=== PATIENT | female | born 1970 | race Caucasian/White ===

== ENCOUNTER 2017-09-29 08:05 | Emergency (ER) | payer BC, MEDICAID ==
[2017-09-29 08:14] VITALS: BP 145/82
--- NOTE | 2017-09-29 08:34 | ER Document Report ---
ED ENT - General Chief Complaint: Ear Pain Stated Complaint: RIGHT EAR PAIN Time Seen by Provider: 09/29/17 08:22 Mode of Arrival: Ambulatory Information source: Patient Notes: Patient is a 47-year-old female who presents to the ER today for 4 days of right ear pain and yellow discharge. Patient denies any hearing loss, runny nose, sore throat, cough, fever, chills or other symptoms. TRAVEL OUTSIDE OF THE [place] IN LAST 30 DAYS: No - Related Data Allergies/Adverse Reactions: acetaminophen [From Darvocet-N] Allergy (Verified 09/29/17 08:07) morphine Allergy (Verified 09/29/17 08:07) propoxyphene [From Darvocet-N] Allergy (Verified 09/29/17 08:07) Past Medical History - General Information source: Patient - Social History Smoking Status: Current Every Day Smoker Chew tobacco use (# tins/day): No Frequency of alcohol use: None Drug Abuse: None Family History: Reviewed & Not Pertinent Patient has suicidal ideation: No Patient has homicidal ideation: No - Past Medical History Cardiac Medical History: Reports: Hx Hypertension Renal/ Medical History: Denies: Hx Peritoneal Dialysis Psychiatric Medical History: Reports: Hx Bipolar Disorder, Hx Depression Review of Systems - Review of Systems Constitutional: No symptoms reported EENT: See HPI Cardiovascular: No symptoms reported Respiratory: No symptoms reported Gastrointestinal: No symptoms reported Genitourinary: No symptoms reported Female Genitourinary: No symptoms reported Musculoskeletal: No symptoms reported Skin: No symptoms reported Hematologic/Lymphatic: No symptoms reported Neurological/Psychological: No symptoms reported Physical Exam - Vital signs Vitals: Temp Pulse Resp BP Pulse Ox 98.4 F 89 16 145/82 H 98 09/29/17 08:14 09/29/17 08:14 09/29/17 08:14 09/29/17 08:14 09/29/17 08:14 - Notes Notes: PHYSICAL EXAMINATION: GENERAL: Well-appearing and in no acute distress. HEAD: Atraumatic, normocephalic. EYES: Pupils equal round and reactive to light, extraocular movements intact, sclera anicteric, conjunctiva are normal. ENT: Left ear canal without erythema or foreign body, right ear canal erythematous with yellow drainage, TMs pearly osorio with good bony landmarks, no perforation, nares patent, oropharynx clear without exudates. Moist mucous membranes. NECK: Normal range of motion, supple without lymphadenopathy LUNGS: CTAB and equal. No wheezes rales or rhonchi. HEART: Regular rate and rhythm without murmurs EXTREMITIES: Normal range of motion, no pitting edema. No cyanosis. NEUROLOGICAL: Cranial nerves grossly intact. Normal sensory/motor exams. PSYCH: Normal mood, normal affect. SKIN: Warm, Dry, normal turgor, no rashes or lesions noted Course - Vital Signs Vital signs: Temp Pulse Resp BP Pulse Ox 98.4 F 89 16 145/82 H 98 09/29/17 08:14 09/29/17 08:14 09/29/17 08:14 09/29/17 08:14 09/29/17 08:14 Discharge - Discharge Clinical Impression: Otitis externa of right ear Qualifiers: Otitis externa type: unspecified type Chronicity: acute Qualified Code(s): H60.501 - Unspecified acute noninfective otitis externa, right ear Condition: Stable Disposition: HOME, SELF-CARE Instructions: Use of Ear Drops ([facility]), Otitis Externa ([facility]) Additional Instructions: Return immediately for any new or worsening symptoms. Follow up with primary care provider, call tomorrow to make followup appointment. Prescriptions: Ciprofloxacin/Hydrocortisone [Cipro Hc Otic Suspension] 10 ml OD BID #1 drops.susp
== END 2017-09-29 08:41 | disposition home or self-care (01) ==
LOC: ER 08:05
DX: H60.501 Unspecified acute noninfective otitis externa, right ear (principal); H92.01 Otalgia, right ear; I10 Essential (primary) hypertension; F17.200 Nicotine dependence, unspecified, uncomplicated; Z88.6 Allergy status to analgesic agent; Z88.5 Allergy status to narcotic agent
CPT/HCPCS: 99282

== ENCOUNTER 2019-03-05 19:11 | Observation (INO) | payer MEDICAID ==
[2019-03-05 20:42] LABS: ABSOLUTE BASOPHILS # (AUTO) 0.1 10^3/uL (0.0-0.2); ABSOLUTE LYMPHOCYTES (AUTO) 1.2 10^3/uL (0.5-4.7); ABSOLUTE MONOCYTES (AUTO) 0.7 10^3/uL (0.1-1.4); ABSOLUTE NEUT (AUTO) 4.9 10^3/uL (1.7-8.2); EOSINOPHILS % (AUTO) 0.1 % (0-6); HEMATOCRIT 41.3 % (36.0-47.0); HEMOGLOBIN 14.5 g/dL (12.0-15.5); LYMPHOCYTES % (AUTO) 17.3 % (13-45); MEAN CORPUSCULAR HEMOGLOBIN 30.6 pg (27.0-33.4); MEAN CORPUSCULAR VOLUME 88 fl (80-97); MONOCYTES % (AUTO) 10.8 % (3-13); PLATELET COUNT 200 10^3/uL (150-450); RED BLOOD COUNT 4.72 10^6/uL (3.72-5.28); RED CELL DISTRIBUTION WIDTH 13.8 % (11.5-14.0); SEGMENTED NEUTROPHILS % (AUTO) 70.8 % (42-78); TOTAL CELLS COUNTED % (AUTO) 100 %; WHITE BLOOD COUNT 6.9 10^3/uL (4.0-10.5)
--- NOTE | 2019-03-05 21:05 | RADIOLOGY REPORT (SQ) ---
EXAM DESCRIPTION: XR CHEST 2 VIEWS COMPLETED DATE/TME: 03/05/2019 20:15 CLINICAL HISTORY: 48 years, Female, chest pain COMPARISON: None. NUMBER OF VIEWS: 2 TECHNIQUE: Two views PA and lateral of the chest were obtained. LIMITATIONS: None. FINDINGS: Cardiac mediastinal silhouette within normal limits. Median sternotomy wires. No discrete focal opacity, pleural effusion or pneumothorax. Postoperative changes of the bones are noted with lumbar spine stabilization hardware, incompletely imaged. Ventral wedging deformity of the suspected L1 level chronic in appearance. IMPRESSION: No acute cardiopulmonary abnormalities. copyright 2010 [employer]- All Rights Reserved
[2019-03-05 21:12] LABS: ALANINE AMINOTRANSFERASE 34 U/L (9-52); ALBUMIN 4.6 g/dL (3.5-5.0); ALKALINE PHOSPHATASE 75 U/L (38-126); ANION GAP 11 (5-19); ASPARTATE AMINO TRANSFERASE 30 U/L (14-36); BILIRUBIN,DIRECT 0.2 mg/dL (0.0-0.4); BILIRUBIN,TOTAL 0.4 mg/dL (0.2-1.3); BLOOD UREA NITROGEN 7 mg/dL (7-20); CALCIUM 10.1 mg/dL (8.4-10.2); CARBON DIOXIDE 27 mmol/L (22-30); CHLORIDE 100 mmol/L (98-107); GLUCOSE 114 mg/dL (75-110); LIPASE 62.7 U/L (23-300); POTASSIUM 4.4 mmol/L (3.6-5.0); SODIUM 137.8 mmol/L (137-145)
[2019-03-05 21:32] LABS: CREATINE KINASE MB 1.89 ng/mL (<4.55)
[2019-03-05 21:36] LABS: TROPONIN I < 0.012 ng/mL
--- NOTE | 2019-03-05 22:13 | EKG REPORT ---
SEVERITY:- NORMAL ECG - SINUS RHYTHM : Confirmed by: Jackie Shah MD 05-Mar-2019 22:12:14
--- NOTE | 2019-03-06 00:27 | ER Document Report ---
ED Cardiac - General Chief Complaint: Chest Pain Stated Complaint: CHEST PAIN Time Seen by Provider: 03/05/19 20:15 TRAVEL OUTSIDE OF THE [place] IN LAST 30 DAYS: No - HPI Notes: Patient is a 48-year-old female that presents to the emergency department for chief complaint of chest pain. Patient has history of CABG x2 in 2013 had 3 coronary stents prior to that. She reports her last cardiac catheterization was almost 2 years ago but states her stents were patent. Patient began having substernal chest heaviness with associated nausea and vomiting around 8 AM this morning. She states the pain was initially intermittent and then became more constant this evening. She did try taking nitroglycerin which she had at home that she states was over a year old and gave her no relief. After receiving 4 baby aspirin and 2 sublingual nitro by EMS patient became pain-free. Currently she states she is asym ptomatic. She denied associated diaphoresis and shortness of breath. She denied radiation of her pain. She was up getting ready for the day when the pain started. She denied any aggravating or relieving factors. Past Medical History: Hypertension, hyperlipidemia, anxiety Past Surgical History: CABG x2, coronary stenting x3 Social History: Denies drugs alcohol and tobacco Family History: Reviewed and noncontributory for presenting illness Allergies: Reviewed, see documented allergy list. REVIEW OF SYSTEMS: CONSTITUTIONAL : No fever No chills No diaphoresis No recent illness EENT: No vision changes No congestion No sore throat CARDIOVASCULAR: chest pain No palpitations RESPIRATORY: No shortness of breath No cough No difficulty breathing GASTROINTESTINAL: No abdominal pain nausea vomiting No diarrhea GENITOURINARY: No dysuria No hematuria No difficulty urinating MUSCULOSKELETAL: No back pain No leg pain No arm pain SKIN: No rashes No lesions LYMPHATIC: No swollen, enlarged glands. NEUROLOGICAL: No lightheadedness No headache No weakness No paresthesias PSYCHIATRIC: No anxiety No depression PHYSICAL EXAMINATION: Vital signs reviewed, nursing noted reviewed. GENERAL: Well-appearing, well-nourished and in no acute distress. HEAD: Atraumatic, normocephalic. EYES: Eyes appear normal, extraocular movements intact, sclera anicteric, conjunctiva are normal. ENT: nares patent, oropharynx clear without exudates. Moist mucous membranes. NECK: Normal range of motion, supple without lymphadenopathy LUNGS: Breath sounds clear to auscultation bilaterally and equal. No wheezes rales or rhonchi. HEART: Regular rate and rhythm without murmurs, +2/4 bilateral radial pulses ABDOMEN: Soft, nontender, normoactive bowel sounds. No rebound, guarding, or rigidity. No masses appreciated. EXTREMITIES: Nontender, good range of motion, no pitting or edema. NEUROLOGICAL: No focal neurological deficits. Moves all extremities spontaneously Motor and sensory grossly intact on exam. PSYCH: Normal mood, normal affect. SKIN: Warm, Dry, normal turgor, no rashes or lesions noted on exposed skin - Related Data Allergies/Adverse Reactions: acetaminophen [From Darvocet-N] Allergy (Verified 09/29/17 08:07) morphine Allergy (Verified 09/29/17 08:07) propoxyphene [From Darvocet-N] Allergy (Verified 09/29/17 08:07) Past Medical History - Social History Smoking Status: Unknown if Ever Smoked Family History: Reviewed & Not Pertinent Patient has suicidal ideation: No Patient has homicidal ideation: No - Past Medical History Cardiac Medical History: Reports: Hx Hypertension Renal/ Medical History: Denies: Hx Peritoneal Dialysis Psychiatric Medical History: Reports: Hx Bipolar Disorder, Hx Depression Physical Exam - Vital signs Vitals: Temp Pulse Resp BP Pulse Ox 99.1 F 83 20 147/79 H 95 03/05/19 19:42 03/05/19 19:42 03/05/19 19:42 03/05/19 19:42 03/05/19 19:42 Course - Re-evaluation Re-evalutation: 03/06/19 00:30 Vitals reviewed. Nursing notes reviewed. Patient is currently asymptomatic. She did receive aspirin prior to arrival. Laboratory 03/05/19 03/05/19 03/05/19 20:25 20:25 20:25 WBC 6.9 RBC 4.72 Hgb 14.5 Hct 41.3 MCV 88 MCH 30.6 MCHC 35.0 RDW 13.8 Plt Count 200 Seg Neutrophils % 70.8 Lymphocytes % 17.3 Monocytes % 10.8 Eosinophils % 0.1 Basophils % 1.0 Absolute Neutrophils 4.9 Absolute Lymphocytes 1.2 Absolute Monocytes 0.7 Absolute Eosinophils 0.0 Absolute Basophils 0.1 Sodium 137.8 Potassium 4.4 Chloride 100 Carbon Dioxide 27 Anion Gap 11 BUN 7 Creatinine 0.65 Est GFR ( Amer) > 60 Est GFR (Non-Af Amer) > 60 Glucose 114 H Calcium 10.1 Total Bilirubin 0.4 Direct Bilirubin 0.2 Neonat Total Bilirubin Not Reportable Neonat Direct Bilirubin Not Reportable Neonat Indirect Bili Not Reportable AST 30 ALT 34 Alkaline Phosphatase 75 CK-MB (CK-2) 1.89 Troponin I < 0.012 Total Protein 7.0 Albumin 4.6 Lipase 62.7 Chest X-Ray 03/05/19 20:15 IMPRESSION: No acute cardiopulmonary abnormalities. copyright 2010 [employer]- All Rights Reserved Her EKG shows no acute ST elevations. Patient's initial troponin is normal. Chest x-ray shows no acute cardiopulmonary process. The remainder of her work- up is unremarkable. She does have a significant cardiac history and will be admitted to the hospital for further telemetry and cardiac monitoring. Patient's care was discussed with Dr. Ward who has accepted admission. - Vital Signs Vital signs: Temp Pulse Resp BP Pulse Ox 99.1 F 83 20 147/79 H 95 03/05/19 19:42 03/05/19 19:42 03/05/19 19:42 03/05/19 19:42 03/05/19 19:42 - Laboratory Result Diagrams: 03/05/19 20:25 03/05/19 20:25 Laboratory results interpreted by me: 03/05/19 20:25 Glucose 114 H - EKG Interpretation by Me Additional EKG results interpreted by me: 03/06/19 00:30 Interpreted by myself 1928: Normal sinus rhythm, rate 81, normal axis, no ectopy, no STEMI Discharge - Discharge Clinical Impression: Chest pain Qualifiers: Chest pain type: unspecified Qualified Code(s): R07.9 - Chest pain, unspecified Condition: Stable Disposition: ADMITTED OBSERVATION Admitting Provider: Ed (Hospitalist) Unit Admitted: Telemetry
[2019-03-06] MEDS ORDERED: TEMAZEPAM 15 MG CAPSULE PO PRN (02:18)
[2019-03-06] MEDS ORDERED: MAGNESIUM HYDROXIDE SUSP 30 ML UDCUP PO PRN (02:18)
[2019-03-06] MEDS ORDERED: MAG HYDROX/AL HYDROX/SIMETH SUSP 30 ML UDCUP PO PRN (02:18)
[2019-03-06] MEDS ORDERED: ONDANSETRON HCL INJ/PF 4 MG/2 ML SDV IV PRN (02:18)
[2019-03-06] MEDS ORDERED: HYDRALAZINE HCL INJ/PF 20 MG/1 ML SDV IV PRN (02:32)
[2019-03-06] MEDS ORDERED: NITROGLYCERIN 0.4 MG/TAB 25 TAB/BOTTLE SL PRN (02:32)
[2019-03-06 03:13] LABS: HEMATOCRIT 40.9 % (36.0-47.0); HEMOGLOBIN 14.4 g/dL (12.0-15.5); MEAN CORPUSCULAR HEMOGLOBIN 30.8 pg (27.0-33.4); MEAN CORPUSCULAR HGB CONC 35.3 g/dL (32.0-36.0); MEAN CORPUSCULAR VOLUME 87 fl (80-97); PLATELET COUNT 171 10^3/uL (150-450); RED BLOOD COUNT 4.68 10^6/uL (3.72-5.28); RED CELL DISTRIBUTION WIDTH 13.9 % (11.5-14.0); WHITE BLOOD COUNT 6.3 10^3/uL (4.0-10.5)
[2019-03-06 03:26] LABS: ANION GAP 11 (5-19); BLOOD UREA NITROGEN 6 mg/dL (7-20); CALCIUM 9.8 mg/dL (8.4-10.2); CARBON DIOXIDE 26 mmol/L (22-30); CHLORIDE 105 mmol/L (98-107); CHOLESTEROL 169.35 mg/dL (0-200); GLUCOSE 90 mg/dL (75-110); POTASSIUM 4.1 mmol/L (3.6-5.0); TRIGLYCERIDES 191 mg/dL (<150)
[2019-03-06 03:36] LABS: DIRECT LDL 85 mg/dL (<100)
[2019-03-06 03:37] LABS: CREATINE KINASE MB 2.05 ng/mL (<4.55)
[2019-03-06 03:43] LABS: TROPONIN I < 0.012 ng/mL; VLDL CHOLESTEROL 38.2 mg/dL (10-31)
--- NOTE | 2019-03-06 05:14 | PDOC H&P ---
History of Present Illness Admission Date/PCP: 03/06/19 00:51 No PCP Patient complains of: Chest pain History of Present Illness: JR VIRAMONTES is a 48 year old female who presented to the emergency room with acute chest pain. She admits developing chest pain at approximately 8 AM on the morning prior to her admission, as she was arising out of bed and initiating her daily routine, and having intermittent pain off and on throughout the day. The pain worsened in the mid to late evening becoming constant and not responding to (out of date) nitroglycerin that she had available at home. The pain became a severe crushing heaviness in her substernal chest without radiation and subsequently she called EMS who provided her with sublingual nitroglycerin x2 and 4 baby aspirin causing her pain to resolve completely, prior to arriving at the emergency room, and it has not returned since that time. She admitted the accompanying symptom of nausea and vomiting earlier in the day but not ac companying the more severe pain in the evening. She admits prior similar episodes associated with her coronary artery disease. She has not identified any other aggravating or ameliorating factors for her current pain. In the emergency room she was found to have initial EKG and cardiac enzyme testing showed no evidence of acute coronary ischemia or injury. She was subsequently admitted to the hospital for further evaluation and treatment. Patient has her regular branch office administrator in [place] at [facility] cardiology and sees [facility] medicine as her primary care provider. Past Medical History Cardiac Medical History: Reports: Coronary Artery Disease, Hyperlipidema, Hypertension Denies: DVT, Pulmonary Embolism Pulmonary Medical History: Denies: Asthma, Chronic Obstructive Pulmonary Disease (COPD) EENT Medical History: Denies: Cataracts, Ears - Hearing aids Neurological Medical History: Denies: Multiple Sclerosis, Seizures Endocrine Medical History: Reports: Obesity Denies: Diabetes Mellitus Type 1, Diabetes Mellitus Type 2, Hyperthyroidism, Hypothyroidism Renal/ Medical History: Denies: Chronic Kidney Disease, Nephrolithiasis Malignancy Medical History: Reports: None GI Medical History: Denies: Cirrhosis, Hepatitis Musculoskeltal Medical History: Denies: Arthritis, Gout Skin Medical History: Denies: Eczema, Psoriasis Psychiatric Medical History: Reports: Bipolar Disorder, Depression, General Anxiety Disorder, Tobacco Dependency Denies: Alcohol Dependency, Substance Abuse Traumatic Medical History: Reports: None Hematology: Denies: Anemia, Bleeding Tendencies Infectious Medical History: Reports: None Past Surgical History Past Surgical History: Reports: Cardiac Catheterization - Several times last two years ago showed patent grafts and stents., Coronary Artery Bypass Graft - X2, Coronary Stent - X3 Social History Information Source: Patient Lives with: Alone Smoking Status: Former Smoker Frequency of Alcohol Use: None Hx Recreational Drug Use: No Drugs: None Hx Prescription Drug Abuse: No - Advance Directive Resuscitation Status: Full Code Surrogate healthcare decision maker:: Fabiola Viramontes Family History Family History: None Parental Family History Reviewed: Yes - Patient is adopted and is unaware of her natural parents medical history. Children Family History Reviewed: No Sibling(s) Family History Reviewed.: Unknown - Patient is adopted and is unaware of her natural siblings (if any) medical history. Medication/Allergy Home Medications: Ciprofloxacin/Hydrocortisone [Cipro Hc Otic Suspension] 10 ml OD BID #1 d rops.susp 09/29/17 Allergies/Adverse Reactions: acetaminophen [From Darvocet-N] Allergy (Verified 09/29/17 08:07) morphine Allergy (Verified 09/29/17 08:07) propoxyphene [From Darvocet-N] Allergy (Verified 09/29/17 08:07) Review of Systems Constitutional: ABSENT: chills, fever(s) Eyes: ABSENT: visual disturbances, other - Eye pain Ears: ABSENT: hearing changes, other - Ear pain Nose, Mouth, and Throat: ABSENT: mouth pain, sore throat Cardiovascular: PRESENT: as per HPI, chest pain. ABSENT: dyspnea on exertion, edema, orthropnea, palpitations Respiratory: ABSENT: cough, dyspnea Gastrointestinal: PRESENT: as per HPI, nausea, vomiting. ABSENT: abdominal pain, constipation, diarrhea Genitourinary: ABSENT: dysuria, hematuria Musculoskeletal: ABSENT: joint swelling, muscle weakness Integumentary: ABSENT: pruritus, rash Neurological: ABSENT: confusion, convulsions, focal weakness, memory loss, syncope Psychiatric: ABSENT: anxiety, depression Endocrine: ABSENT: cold intolerance, heat intolerance Hematologic/Lymphatic: ABSENT: easy bleeding, easy bruising Physical Exam Vital Signs: Temp Pulse Resp BP Pulse Ox 99.1 F 83 11 L 127/69 H 96 03/05/19 19:42 03/05/19 19:42 03/06/19 01:02 03/06/19 01:02 03/06/19 01:02 Intake & Output 03/04/19 03/05/19 03/06/19 23:59 23:59 23:59 Weight 79.3 kg General appearance: PRESENT: no acute distress, cooperative, obese Head exam: PRESENT: atraumatic, normocephalic Eye exam: ABSENT: conjunctival injection, scleral icterus Ear exam: PRESENT: normal external ear exam. ABSENT: bleeding, drainage Mouth exam: PRESENT: dry mucosa, neck supple Neck exam: ABSENT: JVD, thyromegaly, tracheal deviation Respiratory exam: PRESENT: clear to auscultation jeovanny, symmetrical, unlabored Cardiovascular exam: PRESENT: RRR. ABSENT: clicks, gallop, rubs Pulses: PRESENT: normal radial pulses, normal dorsalis pedis pul Vascular exam: PRESENT: normal capillary refill. ABSENT: pallor GI/Abdominal exam: PRESENT: normal bowel sounds, soft Rectal exam: PRESENT: deferred Extremities exam: ABSENT: joint swelling, pedal edema Musculoskeletal exam: PRESENT: full ROM, normal inspection Neurological exam: PRESENT: alert, oriented to person, oriented to place, oriented to time, oriented to situation, CN II-XII grossly intact. ABSENT: motor sensory deficit Psychiatric exam: PRESENT: appropriate affect, normal mood Skin exam: PRESENT: dry, intact, warm. ABSENT: jaundice, rash, urticaria Results Laboratory Results: 03/05/19 20:25 03/05/19 20:25 03/05/19 03/05/19 20:25 20:25 WBC 6.9 RBC 4.72 Hgb 14.5 Hct 41.3 MCV 88 MCH 30.6 MCHC 35.0 RDW 13.8 Plt Count 200 Seg Neutrophils % 70.8 Lymphocytes % 17.3 Monocytes % 10.8 Eosinophils % 0.1 Basophils % 1.0 Absolute Neutrophils 4.9 Absolute Lymphocytes 1.2 Absolute Monocytes 0.7 Absolute Eosinophils 0.0 Absolute Basophils 0.1 Sodium 137.8 Potassium 4.4 Chloride 100 Carbon Dioxide 27 Anion Gap 11 BUN 7 Creatinine 0.65 Est GFR ( Amer) > 60 Est GFR (Non-Af Amer) > 60 Glucose 114 H Calcium 10.1 Total Bilirubin 0.4 AST 30 ALT 34 Alkaline Phosphatase 75 Total Protein 7.0 Albumin 4.6 Lipase 62.7 03/05/19 20:25 CK-MB (CK-2) 1.89 Troponin I < 0.012 Impressions: Chest X-Ray 03/05/19 20:15 IMPRESSION: No acute cardiopulmonary abnormalities. copyright 2010 [employer]- All Rights Reserved Assessment and Plan - Diagnosis (1) Chest pain Qualifiers: Chest pain type: unspecified Qualified Code(s): R07.9 - Chest pain, unspecified Is this a current diagnosis for this admission?: Yes Plan: Patient's chest pain sounds like typical angina and will be treated as such. Serial cardiac enzymes and EKG's will be obtained. Patient will most likely be referred to her regular branch office administrator for further evaluation and treatment if her screening evaluation is negative. Further testing would be best done on an inpatient or outpatient outpatient setting with the patient's regular branch office administrator. (2) CAD (coronary artery disease) Qualifiers: Coronary Disease-Associated Artery/Lesion type: unspecified vessel or lesion type [place] vs. transplanted heart: [place] heart Associated angina: with stable angina Qualified Code(s): I25.118 - Atherosclerotic heart disease of [place] coronary artery with other forms of angina pectoris Is this a current diagnosis for this admission?: Yes Plan: Patient will be continued on her current coronary artery disease medical regiment. She will be observed closely for any requirements of further therapy. She will be sent home with a fresh supply of sublingual nitroglycerin. (3) HTN (hypertension) Qualifiers: Hypertension type: essential hypertension Qualified Code(s): I10 - Essential (primary) hypertension Is this a current diagnosis for this admission?: Yes Plan: Patient will be continued on her current antihypertensive regimen. Her vital signs will be observed closely during her hospital course. (4) HLD (hyperlipidemia) Qualifiers: Hyperlipidemia type: unspecified Qualified Code(s): E78.5 - Hyperlipidemia, unspecified Is this a current diagnosis for this admission?: Yes Plan: Patient will be continued on her current hyperlipidemia therapy. A lipid profile will be obtained to assess the efficacy of her current therapeutic regimen. - Time Time Spent with patient: 25-34 minutes Medications reviewed and adjusted accordingly: Yes Anticipated discharge: Home - Inpatient Certification Based on my medical assessment, after consideration of the patient's comorbidities, presenting symptoms, or acuity I expect that the services needed warrant INPATIENT care.: No I certify that my determination is in accordance with my understanding of Medicare's requirements for reasonable and necessary INPATIENT services [42 CFR 412.3e].: No Medical Necessity: Need Close Monitoring Due to Risk of Patient Decompensation, Need For Continuous Telemetry Monitoring
[2019-03-06] MEDS: FONDAPARINUX SODIUM INJ 2.5 MG/0.5 ML DISP.SYRIN SUBCUT SCH (08:23)
[2019-03-06] MEDS: DOCUSATE SODIUM 100 MG CAPSULE PO SCH ×2 (09:19→17:24)
[2019-03-06] MEDS: FAMOTIDINE 20 MG TABLET PO SCH ×2 (09:19→21:41)
[2019-03-06 11:18] LABS: CREATINE KINASE MB 1.62 ng/mL (<4.55)
[2019-03-06 11:22] LABS: TROPONIN I < 0.012 ng/mL
--- NOTE | 2019-03-06 15:35 | Progress Note ---
Provider Note Provider Note: Currently chest pain-free. Reviewed her cardiac history which is fairly extensive. Most recent cardiac work-up was a cardiac catheterization done approximately 1 year ago. She has follow-up in 5 days with her construction project administrator. If enzymes remain negative, no EKG changes, and chest pain-free, will consider letting her do a work-up as an outpatient with her construction project administrator.
[2019-03-06 15:43] LABS: CREATINE KINASE MB 1.39 ng/mL (<4.55)
[2019-03-06 15:46] LABS: TROPONIN I < 0.012 ng/mL
--- NOTE | 2019-03-06 16:10 | EKG REPORT ---
SEVERITY:- NORMAL ECG - SINUS RHYTHM : Confirmed by: Jackie Shah MD 06-Mar-2019 16:10:14
[2019-03-07] MEDS: FONDAPARINUX SODIUM INJ 2.5 MG/0.5 ML DISP.SYRIN SUBCUT SCH (08:23)
[2019-03-07] MEDS: FAMOTIDINE 20 MG TABLET PO SCH (09:37)
[2019-03-07] MEDS: DOCUSATE SODIUM 100 MG CAPSULE PO SCH (09:37)
[2019-03-07 10:13] VITALS: BP 127/73
--- NOTE | 2019-03-07 17:15 | PDOC DISCHARGE SUMMARY ---
General - Admit/Disc Date/PCP Admission Date/Primary Care Provider: 03/06/19 00:51 Discharge Date: 03/07/19 - Discharge Diagnosis (1) Chest pain Is this a current diagnosis for this admission?: Yes Summary: IN ruled out. Troponins were negative. Chest pain-free. Has very close f ollow-up early next week with her emts. (2) CAD (coronary artery disease) Is this a current diagnosis for this admission?: Yes Summary: We will continue her home meds, has close follow-up with her emts (3) HLD (hyperlipidemia) Is this a current diagnosis for this admission?: Yes Summary: We will continue her home meds (4) HTN (hypertension) Is this a current diagnosis for this admission?: Yes Summary: We will continue her home meds - Additional Information Resuscitation Status: Full Code Discharge Diet: Cardiac Discharge Activity: Activity As Tolerated Prescriptions: Nitroglycerin [Nitrostat 0.4 mg (1/150 Gr) Tabs 25/Bottle] 1 tab SL Q5MP PRN #1 bottle PRN Reason: Home Medications: Brexpiprazole [Rexulti] 1 tab PO DAILY 03/06/19 Chlorpromazine HCl [Chlorpromazine HCL 200 mg Tablet] 1 tab PO TID 03/06/19 Isosorbide Mononitrate [Imdur 60 mg Tablet.er] 60 mg PO DAILY 03/06/19 Lamotrigine [Lamictal 100 mg Tablet] 1.5 tab PO BID 03/06/19 Levothyroxine Sodium [Synthroid 0.025 mg Tablet] 0.025 mg PO DAILY 03/06/19 Levothyroxine Sodium [Synthroid] 200 mcg PO DAILY 03/06/19 Losartan Potassium [Cozaar 25 mg Tablet] 25 mg PO DAILY 03/06/19 Metoprolol Tartrate [Lopressor 25 mg Tablet] 0.5 tab PO BID 03/06/19 Mirtazapine 45 mg PO QHS 03/06/19 Omeprazole 20 mg PO BID 03/06/19 Potassium Chloride 10 meq PO DAILY 03/06/19 Rosuvastatin Calcium 10 mg PO DAILY 03/06/19 Trazodone HCl [Desyrel] 250 mg PO QHS 03/06/19 Nitroglycerin [Nitrostat 0.4 mg (1/150 Gr) Tabs 25/Bottle] 1 tab SL Q5MP PRN #1 bottle 03/07/19 History of Present Illness History of Present Illness: JR ESPARZA is a 48 year old female who presented to the emergency room with acute chest pain. She admits developing chest pain at approximately 8 AM on the morning prior to her admission, as she was arising out of bed and initiating her daily routine, and having intermittent pain off and on throughout the day. The pain worsened in the mid to late evening becoming constant and not responding to (out of date) nitroglycerin that she had available at home. The pain became a severe crushing heaviness in her substernal chest without radiation and subsequently she called EMS who provided her with sublingual nitroglycerin x2 and 4 baby aspirin causing her pain to resolve completely, prior to arriving at the emergency room, and it has not returned since that time. She admitted the accompanying symptom of nausea and vomiting earlier in the day but not accompanying the more severe pain in the evening. She admits prior similar episodes associated with her coronary artery disease. She has not identified any other aggravating or ameliorating factors for her current pain. In the emergency room she was found to have initial EKG and cardiac enzyme testing showed no evidence of acute coronary ischemia or injury. She was subsequently admitted to the hospital for further evaluation and treatment. Patient has her regular emts in [place] at [facility] and sees [facility] as her primary care provider. Hospital Course Hospital Course: She remained pain-free. Troponins remain negative. She has follow-up early n ext week with her emts. She will continue her home medications. I gave her a prescription for as needed nitroglycerin. Her labs and examination were reassuring and she was discharged in good condition. Physical Exam Vital Signs: Temp Pulse Resp BP Pulse Ox 98.0 F 79 17 127/73 H 100 03/07/19 10:12 03/07/19 10:12 03/07/19 10:12 03/07/19 10:12 03/07/19 10:12 Intake & Output 03/06/19 03/07/19 03/08/19 06:59 06:59 06:59 Intake Total 600 Balance 600 Weight 76.1 kg 78.1 kg General appearance: PRESENT: no acute distress, cooperative, disheveled, obese Respiratory exam: PRESENT: clear to auscultation jeovanny, symmetrical, unlabored. ABSENT: accessory muscle use, chest wall tenderness, crackles, prolonged expiratory phas, rhonchi, tachypnea, wheezes Cardiovascular exam: PRESENT: RRR, +S1, +S2. ABSENT: diastolic murmur, systolic murmur Pulses: PRESENT: normal carotid pulses Vascular exam: PRESENT: normal capillary refill GI/Abdominal exam: PRESENT: normal bowel sounds, soft. ABSENT: distended, guarding, rebound, tenderness Extremities exam: ABSENT: clubbing, pedal edema Musculoskeletal exam: PRESENT: normal inspection. ABSENT: deformity Neurological exam: PRESENT: alert, awake, oriented to person, oriented to place, oriented to time, oriented to situation Psychiatric exam: PRESENT: appropriate affect, normal mood Skin exam: PRESENT: dry, warm Results Laboratory Results: 03/06/19 03:02 03/06/19 03:02 03/05/19 03/06/19 03/06/19 20:25 03:02 03:02 Creatine Kinase 137 H CK-MB (CK-2) 1.89 2.05 Troponin I < 0.012 < 0.012 03/06/19 03/06/19 03/06/19 10:10 10:10 14:52 Creatine Kinase 115 104 CK-MB (CK-2) 1.62 Troponin I < 0.012 03/06/19 14:52 Creatine Kinase CK-MB (CK-2) 1.39 Troponin I < 0.012 Impressions: Chest X-Ray 03/05/19 20:15 IMPRESSION: No acute cardiopulmonary abnormalities. copyright 2010 [employer]- All Rights Reserved Qualifiers - * PATIENT BEING DISCHARGED WITH ANY OF THE FOLLOWING DIAGNOSIS: No Acute Heart Failure Is this a Heart Failure Patient?: No Plan Time Spent: Less than 30 Minutes
== END 2019-03-07 11:00 | disposition home or self-care (01) ==
LOC: ER 19:11 → EH 03-06 00:51 → 3N 03-06 02:06
PROVIDERS: ADMIT Emergency Medicine; ATTEND Emergency Medicine
DX: R07.9 Chest pain, unspecified (principal); I25.118 Atherosclerotic heart disease of native coronary artery with other forms of angina pectoris; E78.5 Hyperlipidemia, unspecified; I10 Essential (primary) hypertension; R07.2 Precordial pain; R11.2 Nausea with vomiting, unspecified; F41.1 Generalized anxiety disorder; F31.9 Bipolar disorder, unspecified; Z95.5 Presence of coronary angioplasty implant and graft; Z95.1 Presence of aortocoronary bypass graft; Z79.899 Other long term (current) drug therapy; Z87.891 Personal history of nicotine dependence
CPT/HCPCS: 93005 ×2; 99285; 36415 ×2; 82553 ×2; 82550; 83690; 83735; 84443; 85025; 85027; 80048; 80053; 84484 ×2; 80061; 71046; 93010 ×2; J3490 ×6; J1652 ×2; G0378

== ENCOUNTER → 2020-10-25 | Outpatient (CLI) | payer MEDICAID ==
--- NOTE | 2020-10-26 08:51 | WOMENS IMAGING REPORT ---
EXAM DESCRIPTION: BILAT SCREENING MAMMO W/CAD IMAGES COMPLETED DATE/TIME: 10/25/2020 8:54 am REASON FOR STUDY: ROUTINE SCREENING MAMMOGRAM Z12.31 Z12.31 ENCNTR SCREEN MAMMOGRAM FOR MALIGNANT N EOPLASM OF SALLY COMPARISON: None. EXAM PARAMETERS: Standard craniocaudal and mediolateral oblique views of each breast recorded using digital acquisition. Read with the assistance of CAD. .[employer] Version 9.2 LIMITATIONS: None. FINDINGS: Findings present which are benign by mammographic criteria. No suspicious masses, calcifi cations or architectural distortion. Pertinent benign findings: Bilateral benign calcifications. Benign mammographic findings may include one or more of the following: Smooth masses, popcorn/rim/co arse calcifications, asymmetries, post-procedure changes, and lesions with long-standing stability. IMPRESSION: BENIGN MAMMOGRAPHIC FINDINGS. BIRADS 2 BREAST DENSITY: b. There are scattered areas of fibroglandular density. BIRAD: ASSESSMENT: 2 BENIGN FINDING(S) RECOMMENDATION: ROUTINE SCREENING COMMENT: The patient has been notified of the results by letter per SA requirements. Additional no tification policies are in place for contacting patient with suspicious or incomplete findings. Quality ID #[id number]: The [employer] recommends an annual screening mammogram for women aged 40 years or over. This facility utilizes a reminder system to ensure that all patients receive reminder letters, and/or direct phone calls for appointments. This includes reminders for routine scr eening mammograms, diagnostic mammograms, or other Breast Imaging Interventions when appropriate. Th is patient will be placed in the appropriate reminder system. TECHNICAL DOCUMENTATION: FINDING NUMBER: (1) ASSESSMENT: (1) JOB ID: [id number] 2010 [employer]- All Rights Reserved Reading location - IP/workstation name: [email or web address]
== END ==
LOC: WI 11:54
PROVIDERS: ATTEND Hospitalist
DX: Z12.31 Encounter for screening mammogram for malignant neoplasm of breast (principal)
CPT/HCPCS: 77067